=== PATIENT | female | born 1995 | race Caucasian/White ===

== ENCOUNTER 2018-09-16 10:40 | Day surgery (SDC) | payer OTHER, SELFPAY ==
--- NOTE | 2018-08-25 01:42 | HP_ITS ---
Intake Vital Signs 08/25/18 Height 5 ft 11 in 08/25/18 Weight: 230 lb 08/25/18 Body Mass Index (BMI) 32.1 08/25/18 Blood Pressure 122/76 H 08/25/18 Blood Pressure Location Rt brachial Intake Visit Reasons: Lipoma R Shoulder Blade Retention Specialist Required: No Is patient in pain?: No Allergies No Known Allergies Allergy (Unverified 08/25/18 12:55) Medications NK 08/25/18 [History Confirmed 08/25/18] PFSH Family History Grandmother Cancer pancreatic Social History Smoking Status: Never smoker alcohol intake: never HPI HPI HPI: LING NEGRON, is a 23 F who presents to the office today for HPI HPI Surgical H&P: Yes HPI: LING NEGRON, is a 23 F who presents to the office today for evaluation of a subcutaneous lesion to her right upper back area. She is noticed a small lump there for almost 2 years. She has not had any pain with this she states that it is now 4 times its original size. She has been told that it was a lipoma in the past. Nevertheless she cannot feel it nor does she noticed it when she is sleeping ROS General General: Yes weight change; no appetite, fatigue, colon cancer, breast cancer or weakness HEENT HEENT: No difficulty swallowing, eye injury, eye surgery, swollen glands or hoarseness Endo Endocrine: No thyroid disease, diabetes mellitus, thyroid cancer, Hair loss, heat intolerance or cold intolerance Skin Skin: No rash or changing moles Breast Breast: No left breast lump, right breast lump, nipple discharge, breast pain, abnormal mammogram, abnormal US or breast enlargement Musc Musculoskeletal: No back problems, arthritis, rheumatoid arthritis, gout or joint pain Cardio Cardiovascular: No murmur, pacemaker, heart disease, atrial fibrillation, high blood pressure, heart attack, heart stent, palpitations, shortness of breat with exertion or chest pain Psych Psychiatric: No depression, anxiety or hearing voices Resp Respiratory: No shortness of breath, No sleep apnea, No cough, No COPD, No asthma, No emphysema, No wheezing Gastro Gastrointestinal: No abdominal pain, No nausea or vomiting, No diarrhea, No constipation, No blood in stool, No acid reflux, No hemorrhoids, No ulcers, No gallbladder problem, No black,tarry stools Lázaro Hematologic: No blood thinners, No blood disorders, No bleeding, No anemia, No blood clots Neuro Neurologic: No system reviewed and no additional complaints, except as docu, No as per HPI, No abnormal walking, No abnormal hearing, No abnormal movements, No abnormal speech, No behavioral changes, No burning sensations, No confusion, No seizure-like activity, No unsteadiness, No dizziness, No localized weakness, No frequent falls, No headache(s), No lack of coordination, No loss of vision, No memory loss, No numbness, No other visual disturbances, No radiating pain, No restless legs, No sensory deficit, No fainting, No tingling, No tremor(s), No weakness, No other Exam Const General: no acute distress, well developed, well hydrated Orientation: oriented to person, oriented to place, oriented to time [facility] Head: normocephalic, atraumatic Ears: external ears normal Mouth: moist mucous membranes Eyes Sclera: sclerae normal Pupils: normal by confrontation Neck Neck: no lymphadenopathy noted Neck mass: No Thyroid: thyroid normal, symmetrical Chest Chest palpation & inspection: normal inspection of the chest Breast Palpation: No nipple discharge Resp Effort & Inspection: normal respiratory effort Auscultation: clear to auscultation bilaterally Percussion: percussion normal Cardio Rate: regular rate Rhythm: regular rhythm Heart Sounds: no murmurs GI Palpation: soft, no hepatosplenomegaly, no masses, nontender Rectal Exam: other Other: Rectal exam deferred. Musc Other: Right upper back just on top of the scapula and trapezius area is a large 15 cm subcutaneous lesion. It is freely movable it is soft and compressible it is not suspicious for malignancy. The overlying skin looks normal there is no signs of infection cellulitis or rash. There is no tenderness to palpation. Extrem General: normal to inspection, no clubbing, cyanosis or edema Assessment & Plan Problems 1. Lesion of subcutaneous tissue L98.9 Plan My plan is to excise this subcutaneous lesion of her upper back in the OR under local MAC.We reviewed the pre-operative plans with the patient. Risks and benefits of the procedure were fully explained, including but not limited to infection, neurovascular injury, continued pain, arthritis, stiffness, need for further surgery, re-injury, DVT, PE, general risks of anesthesia, and loss of the limb or life. The patient understands all the risks and does wish to proceed with written consent. Given the fact that this is now 4 times its original size it makes no sense and not removing this for fear that it could grow larger and possibly change. I have also told her that there is a slight chance that it could be malignant. Coding Level of Care Code Off vis,new,level 3 Diagnoses Lesion of subcutaneous tissue L98.9 08/25/18 1346 <Electronically signed by Misha sheffield MD> Date _ Misha Dodge MD I have re-examined the patient. There are no clinical changes since date of exam.
[2018-08-25 12:54] VITALS: BMI 32.1
--- NOTE | 2018-09-16 | LIP_PTH ---
PATIENT: LING NEGRON [place] [facility] [id number] AGE/SX: 23/F ROOM: RE09/16/[address]: Dr. Misha Dodge MD : [id number] BED: DIS: 09/16/2018 SPEC #: [id number] RECD: 09/16/18 16:37 STATUS: FRANCES KAYE #: [id number] SOFIA: 09/16/18 00:[address]: Misha Dodge DEPT: SURGICAL PATHOLOGY RECD BY: Anand Stone ENTERED: 09/17/18 13:58 SP TYPE: LIPOMA OTHR DR: Dr. Angela Szymanski MD Tissues: Soft tissues, NOS Procedures: Surgery Specimen Level III HEADER OPERATION: Excision lipoma right scapula PRE-OP DIAGNOSIS: Lesion subcutaneous tissue right scapula TISSUE SUBMITTED: Lipoma right scapula MICROSCOPIC DIAGNOSIS Soft tissue mass of right scapula, excision: Mature adipose tissue consistent with lipoma. AM:lexa 09/19/18 MICROSCOPIC DESCRIPTION Slides are reviewed. GROSS DESCRIPTION Received in fixative is one container labeled with the patient's name and designated lipoma right scapula. The specimen consists of an irregular piece of adipose tissue measuring 11 x 8 x 4 cm. The external surface is inked. Sections reveal yellow adipose cut surfaces without areas of hemorrhage, necrosis or cystic degeneration. Building Maintenance Technician sections are submitted in four cassettes. / SJ:lexa 09/17/18 TC:1 CPT: 11927
[2018-09-16 10:59] VITALS: BP 118/90; PULSE 80; RESP 16; TEMP 37; O2SAT 100; BMI 37.2
[2018-09-16 11:00] LABS: Internal QC Validated? YES +Cl - CLEAR BKGD
[2018-09-16 11:07] LABS: Pregnancy, Urine Negative Negative
[2018-09-16] MEDS: Cefazolin 2 GM in 0.9% Normal Saline 100 ML IV (13:27)
--- NOTE | 2018-09-16 13:30 | PCM.OPRPT ---
Problem List (1) Lesion of subcutaneous tissue Status: Acute Report of Operation Date of Procedure: 09/16/18 Pre-Operative Diagnosis: 12 cm subcutaneous lesion to right back Post-Operative Diagnosis: Same Surgery/Procedure Performed:: Excision of a 12 cm right lesion the back Type of Anesthesia:: General Estimated Blood Loss (mL): < 25 cc Description of Procedure: Patient was brought to the operating room placed in the supine position under excellent general anesthetic patient was placed in the left side with her arm extended exposing her back area near the right scapula. Everything was properly padded and she was secured to the bed. The right scapular area was sterilely prepped and draped in usual fashion. Local was injected. 15 cm incision was made electrocautery was used for good hemostasis dissected down through the subcutaneous tissue and encountered a large fatty lesion. I was able to remove this in its entirety and went all the way down to the fascia of the scapular musculature. It did not invade this muscle. It easily came out. I had good hemostasis. I brought the subcu together with interrupted sutures of 2-0 Vicryl. Deep dermal stitches of 3-0 Vicryl. Then a running 4-0 Monocryl. Steri-Strips were applied sterile dressings were applied and the patient tolerated the procedure well. She was extubated and transferred to the recovery room in good condition. - Admit VTE Documentation VTE Present on Admission: No VTE Mechan Device Prophylaxis: SCD's VTE Pharm Prophylaxis ordered?: No Reason prophylaxis not ordered:: Treatment Not Indicated
--- NOTE | 2018-09-16 13:32 | DCINST_ITS ---
Discharge Diet: Light diet - advance as tolerated - If you have questions about your diet instructions, please talk to your doctor. Discharge Activity: May Not Drive - for 1 week or while taking narcotic pain medicine. May shower in (days): 1 Lifting Restrictions: 10 pounds Call your doctor if your incision/area has: Continuous Slow Oozing, Sudden Increased Bleeding, Increased Pain/ Swelling, Increased Redness, Foul Smelling Discharge Call your doctor if you observe: Fever of 101 or Higher Suture Line Care: Avoid Pulling/Pushing, Avoid Pinching/Bending Additional Dressing/Incision Instructions:: Change or remove dressing in 4 days. Leave steri-strips in place for 1 week. Allergies/Adverse Reactions: Allergies No Known Allergies Allergy (Unverified 09/16/18 10:57) Medications to take at Discharge Oxycodone HCl/Acetaminophen [Percocet 5/325] 1 - 2 tab PO Q4H PRN PRN 6 Days #30 tab 09/16/18 The following prescriptions were given: Oxycodone HCl/Acetaminophen [Percocet 5/325] 1 - 2 tab PO Q4H PRN PRN 6 Days #30 tab PRN Reason: Pain Prescription Printed Primary Care Physician: Angela Szymanski MD [Primary Care Provider] - Test Results: Test results from this visit will be discussed in further detail at your follow- up appointment, if applicable. Please Follow Up With: Misha Dodge MD - [phone] When: Call to make an appointment to be seen in about 10 days.
[2018-09-16] MEDS: Bupivacaine Mpf 0.5% 30 ML VIAL (13:44)
[2018-09-16 14:18] VITALS: BP 102/73; BP 118/90; PULSE 70; RESP 18; TEMP 36.6; O2SAT 98
[2018-09-16 14:30] VITALS: BP 108/63; BP 118/90; PULSE 62; RESP 18; O2SAT 99
[2018-09-16 14:45] VITALS: BP 110/65; BP 118/90; PULSE 66; RESP 18; TEMP 36.7; O2SAT 100
[2018-09-16 15:29] VITALS: BP 118/90
== END 2018-09-16 15:32 | disposition home or self-care (01) ==
LOC: SDC 10:43 → AC 10:44
PROVIDERS: Anesthesiology; Family Provider Family Medicine; PCP Family Medicine; Referring Provider Surgery; Visit Provider Surgery
PROC: (CPT 23071; principal; 2018-09-16 12:30)
DX: D17.1 Benign lipomatous neoplasm of skin and subcutaneous tissue of trunk (principal)
CPT/HCPCS: 23071; 81025; 88304; J7120; J2405

== ENCOUNTER → 2018-10-27 15:29 | Outpatient (CLI) | payer OTHER, SELFPAY ==
[2018-10-27 15:01] VITALS: BMI 37.2
[2018-10-27 17:16] LABS: Estradiol 52.6 pg/mL; Follicle Stimulating Hormone 5.8 mIU/mL; Prolactin 6.5 ng/mL; Thyroid Stim Hormone (TSH) 0.94 uIU/mL (0.358-3.74)
[2018-10-27 17:21] LABS: HIV - WCH Non-Reactive (Nonreactive)
[2018-10-27 20:34] LABS: Chlamydia Trachomatis by PCR Negative (Negative); Neisserai gonorrhoeae by PCR Negative (Negative); Probe Check PASS; Sample Adequacy Control PASS; Specimen Processing Control PASS
[2018-10-30 12:07] LABS: DHEA Sulfate 246.2 ug/dL (110.0-431.7)
[2018-10-31 01:38] LABS: Rapid Plasmin Reagin (RPR) NONREACTIVE (NONREACTIVE)
[2018-10-31 12:23] LABS: 17-Hydroxyprogesterone 55 ng/dL (.); Testosterone Free 1.3 pg/mL (0.0-4.2)
[2018-11-03 12:19] LABS: HPV Reflexed? NOT INDICATED
== END ==
PROVIDERS: Family Provider Family Medicine; PCP Family Medicine; Referring Provider Nurse Practitioner Women's Health; Visit Provider Nurse Practitioner Women's Health
DX: Z12.4 Encounter for screening for malignant neoplasm of cervix (principal); N92.6 Irregular menstruation, unspecified; Z11.3 Encounter for screening for infections with a predominantly sexual mode of transmission
CPT/HCPCS: 36415; 82627; 82670; 83001; 83498; 84146; 84402; 84443; 86592; 86703; 87491; 87591; 87624; 88175; 82626; G0145

== ENCOUNTER → 2019-05-27 14:52 | Outpatient (CLI) | payer OTHER, SELFPAY ==
[2018-10-27 15:01] VITALS: BMI 37.2
--- NOTE | 2019-05-27 14:59 | BI_ITS ---
MAMMOGRAPHY - BILATERAL SCREENING REASON FOR EXAM: Female, 24 years old. Routine annual screening examination. PERTINENT HISTORY: Sister with breast cancer. TECHNIQUE: Digital bilateral breast cherelle (3D mammographic acquisition) in the CC and MLO projections. 2-D mediolateral oblique (MLO) and craniocaudad (CC) views of both breasts were obtained. CAD: Full Field Digital Mammography with Computer Added Detection was performed. COMPARISON: None. Baseline examination. FINDINGS: Breast Composition: The breasts are heterogeneously dense, which may obscure small masses. There are no dominant masses or suspicious calcifications. No other significant abnormalities are identified. BI/SCREEN MAMM (CAD) W/CHERELLE BILAT IMPRESSION: Negative screening mammogram. Yearly followup mammogram recommended. (A) ASSESSMENT CATEGORY: BIRADS Category 1: Negative. A letter regarding these results will be sent to the patient by the facility within 30 days. Approximately 10% of breast cancers are not detected by mammography. A normal mammogram should not delay biopsy of a clinically suspicious abnormality. [id number] Electronically Signed: Tal Moody, at 8:17 EDT , Service support ,
== END ==
PROVIDERS: PCP Family Medicine; Referring Provider Nurse Practitioner Women's Health; Visit Provider Nurse Practitioner Women's Health
DX: Z12.31 Encounter for screening mammogram for malignant neoplasm of breast (principal); Z80.3 Family history of malignant neoplasm of breast
CPT/HCPCS: 77063; 77067

== ENCOUNTER → 2020-07-04 12:37 | Outpatient (CLI) | payer OTHER, SELFPAY ==
[2020-07-04 08:09] VITALS: BMI 40.6
[2020-07-06 12:57] LABS: HPV Reflexed? NOT INDICATED
== END ==
PROVIDERS: PCP Family Medicine; Referring Provider Obstetrics & Gynecology; Visit Provider Obstetrics & Gynecology
DX: Z12.4 Encounter for screening for malignant neoplasm of cervix (principal)
CPT/HCPCS: 88175; G0145

== ENCOUNTER → 2020-08-01 09:02 | Outpatient (CLI) | payer OTHER, SELFPAY ==
[2020-08-01 08:57] VITALS: BMI 40.6
[2020-08-01 10:21] LABS: Cholesterol 186 mg/dL (200); Glucose 95 mg/dL (74-106); High Density Lipoprotein 59 mg/dL; Triglycerides 85 mg/dL; Very Low Density Lipoprotein 17 mg/dL (5-40); Vitamin D,25 Hydroxy 49.7 ng/mL
== END ==
PROVIDERS: PCP Family Medicine; Referring Provider Obstetrics & Gynecology; Visit Provider Obstetrics & Gynecology
DX: Z13.21 Encounter for screening for nutritional disorder (principal); Z13.220 Encounter for screening for lipoid disorders; E28.2 Polycystic ovarian syndrome
CPT/HCPCS: 36415; 80061; 82306; 82947

== ENCOUNTER → 2021-12-07 | Outpatient (CLI) | payer OTHER, SELFPAY ==
[2021-12-07 18:04] LABS: hCG Titer Quant., Serum < 1 mIU/mL (1-3)
[2021-12-07 18:10] LABS: Estradiol 52.8 pg/mL; Thyroid Stim Hormone (TSH) 1.25 uIU/mL (0.358-3.74)
[2021-12-12 16:08] LABS: Testosterone Free 2.1 pg/mL (0.0-4.2)
[2021-12-13 13:49] LABS: 17-Hydroxyprogesterone 45 ng/dL (.)
== END | disposition home or self-care (01) ==
PROVIDERS: PCP Family Medicine; Visit Provider Obstetrics & Gynecology
DX: E28.2 Polycystic ovarian syndrome (principal); Z83.2 Family history of diseases of the blood and blood-forming organs and certain disorders involving the immune mechanism
CPT/HCPCS: 36415; 81241; 82627; 82670; 83001; 83498; 84146; 84402; 84443; 84702; 82626

== ENCOUNTER → 2022-12-14 | Outpatient (CLI) | payer SELFPAY ==
[2022-12-21 16:54] LABS: HPV Reflexed? NOT INDICATED
== END | disposition home or self-care (01) ==
PROVIDERS: PCP Family Medicine; Visit Provider Registered Nurse
DX: R87.612 Low grade squamous intraepithelial lesion on cytologic smear of cervix (LGSIL) (principal)
CPT/HCPCS: 88175; G0145

== ENCOUNTER → 2023-02-06 | Outpatient (CLI) | payer OTHER, SELFPAY ==
[2023-02-06 12:21] LABS: Absolute Lymphocyte Count 1.71 X10^3/uL (0.83-4.51); Basophil# 0.05 X10^3/uL; Basophil% 0.8 % (0-1); Eosinophil# 0.07 X10^3/uL; Eosinophils% 1.1 % (0-5); Hematocrit 41.6 % (37-47); Hemoglobin 13.4 g/dL (12.0-15.0); Lymphocyte # 1.71 X10^3/ul (0.83-4.51); Lymphocyte % 27.1 % (19-41); Mean Corp Hgb Conc 32.2 g/dL (32-36); Mean Corpuscular Hgb 26.3 pg (27.0-32.0); Mean Corpuscular Volume 81.7 fL (81-99); Mean Platelet Vol. 10.1 fl (6.2-12.0); Monocyte# 0.43 X10^3/uL; Monocyte% 6.8 % (0-10); NRBC Flagged by Analyzer 0 % (0-5); Neutrophil # 4.03 X10^3/uL (2.7-7.7); Neutrophil % 63.9 % (47-70); Platelet Count 318 K/mm3 (150-450); RBC Distribution Width CV 12.1 % (11.6-14.6); RBC Distribution Width SD 35.9 fl (35.1-43.9); Red Blood Count 5.09 M/mm3 (4.2-5.4); White Blood Count 6.3 K/mm3 (4.4-11.0)
[2023-02-06 13:12] LABS: Hemoglobin A1c 4.7 % (3.8-5.6)
[2023-02-06 13:20] LABS: ALB/GLOB Ratio 0.8 RATIO (0.9-2.4); AST(SGOT) 13 U/L (15-37); Alanine Aminotransfer ALT/SGPT 20 U/L (13-56); Albumin, Serum 3.6 g/dL (3.2-5.0); Alkaline Phosphatase 71 U/L (45-117); Anion Gap 8 (5-15); BUN 15 mg/dL (7-18); BUN/Creat Ratio 16.4 RATIO (10-20); Calcium,Total 9.1 mg/dL (8.5-10.1); Chloride 107 mmol/L (98-107); Cholesterol 187 mg/dL (200); Creatinine, Serum 0.92 mg/dL (0.55-1.02); EST Glomerular Filtration Rate 78 mL/min (>60); Est Glom Filt Rate - Afr Amer 94 mL/min (>60); Globulin 4.5 g/dL (2.2-4.2); Glucose 74 mg/dL (74-106); High Density Lipoprotein 53 mg/dL; Protein, Total 8.1 g/dL (6.4-8.2); Sodium Level 139 mmol/L (136-145); Thyroid Stim Hormone (TSH) 1.69 uIU/mL (0.358-3.74); Triglycerides 128 mg/dL; Very Low Density Lipoprotein 26 mg/dL (5-40)
== END | disposition home or self-care (01) ==
PROVIDERS: PCP Family Medicine; Visit Provider Obstetrics & Gynecology
DX: E66.9 Obesity, unspecified (principal)
CPT/HCPCS: 36415; 80053; 80061; 82652; 83036; 84443; 85025

== ENCOUNTER → 2024-05-28 | Outpatient (CLI) | payer BC, SELFPAY ==
[2024-05-28 12:36] LABS: Absolute Lymphocyte Count 1.69 X10^3/uL (0.83-4.51); Absolute Neutrophil Count 3.8 X10^3/uL (2.0-7.7); Basophil# 0.06 X10^3/uL; Eosinophil# 0.09 X10^3/uL; Eosinophils% 1.5 % (0-5); Hemoglobin 14.4 g/dL (12.0-15.0); Lymphocyte # 1.69 X10^3/ul (0.83-4.51); Lymphocyte % 27.9 % (19-41); Mean Corp Hgb Conc 34.3 g/dL (32-36); Mean Corpuscular Hgb 28.1 pg (27.0-32.0); Monocyte# 0.36 X10^3/uL; Monocyte% 5.9 % (0-10); NRBC Flagged by Analyzer 0 % (0-5); Neutrophil # 3.84 X10^3/uL (2.7-7.7); Neutrophil % 63.4 % (47-70); Platelet Count 376 K/mm3 (150-450); RBC Distribution Width CV 12.5 % (11.6-14.6); RBC Distribution Width SD 37.3 fl (35.1-43.9); Red Blood Count 5.12 M/mm3 (4.2-5.4); White Blood Count 6.1 K/mm3 (4.4-11.0)
== END | disposition home or self-care (01) ==
LOC: BWCLAB 10:36
PROVIDERS: PCP Family Medicine; Referring Provider Advanced Practice Midwife; Visit Provider Advanced Practice Midwife
DX: Z13.29 Encounter for screening for other suspected endocrine disorder (principal); N92.0 Excessive and frequent menstruation with regular cycle; N93.9 Abnormal uterine and vaginal bleeding, unspecified
CPT/HCPCS: 36415; 84443; 85025

== ENCOUNTER → 2024-06-01 | Outpatient (CLI) | payer BC, SELFPAY ==
--- NOTE | 2024-06-01 12:22 | US_ITS ---
PROCEDURE: PELVIC W/ TRANSVAGINAL REASON FOR EXAM: ABNORMAL UTERINE BLEEDING TECHNIQUE: Transabdominal and transvaginal pelvic ultrasound COMPARISON: None. FINDINGS: LMP: May 15, 2024. Measurements: Uterus: 9.5 cm x 5.6 cm x 4.2 cm with a volume of 115 mL Endometrial Thickness: 14.4 mm Right Ovary: 3.8 cm x 2.3 cm x 2.7 cm with a volume of 12.14 mL. Left Ovary: 4.1 cm x 2.8 cm x 2.1 cm with a volume of 12.24 mL. TRANSABDOMINAL: Uterus: Normal size, myometrial echotexture, and contour. Endometrium: Homogeneously thickened. Right ovary: Multiple small follicles. Left ovary: Multiple small follicles. No large pelvic mass identified. Transvaginal sonography was performed to better visualize the endometrium. TRANSVAGINAL: Uterus: Anteverted. Normal contour and myometrial echotexture.. Nabothian cyst. Endometrium: Thickened endometrium. Right ovary: Multiple small follicles. Left ovary: Multiple small follicles. Other adnexal findings: None. Cul-de-sac: No free intraperitoneal fluid identified. No tenderness. US/Pelvic w/ Transvaginal IMPRESSION: Multiple small follicles in both ovaries as described. Polycystic ovary syndro me should be ruled out. Thickened endometrium. Reading Location: [place] [id number]
== END | disposition home or self-care (01) ==
PROVIDERS: Referring Provider Advanced Practice Midwife; Visit Provider Advanced Practice Midwife
DX: N93.9 Abnormal uterine and vaginal bleeding, unspecified (principal); N92.0 Excessive and frequent menstruation with regular cycle
CPT/HCPCS: 76830; 76856

== ENCOUNTER 2024-07-20 01:59 | Emergency (ER) | payer BC, SELFPAY ==
[2024-07-20 02:00] VITALS: BP 141/79; PULSE 76; RESP 22; TEMP 36.6; O2SAT 100; BMI 38.3
--- NOTE | 2024-07-20 02:12 | ED.VIS.FEGU ---
HPI HPI - Female History of Present Illness Chief Complaint: Female C/O Informant: patient Narrative Narrative: Presents with lower worsening nontraumatic low back pain pelvic pain since started her menstrual period yesterday. This is not typical for the similar pain. Take 3 Aleve's prior to bed. No urinary symptoms. No fever chills or sweats. No abdominal surgeries. History of PCOS. Patient presenting the ED had 1 large emesis while in the emergency department. There is no hematemesis. No allergies. Prior similar symptoms: No PFSH PFSH Medical History Family history of factor V deficiency Home Medications ?Medication ?Instructions ?Recorded ?Last Taken ?Type semaglutide (weight loss) 2.4 2.4 mg subcut QWEEK 05/28/24 Unknown History mg/0.75 mL subcutaneous pen injector Allergy/AdvReac Type Severity Reaction Status Date / Time No Known Allergies Allergy Verified 07/20/24 02:03 Family History Grandmother Cancer pancreatic Sister Breast cancer, Onset Age: 32 stage 3, neg for BRCA gene Surgical History H/O local excision of skin lesion Social History Smoking Status: Never smoker alcohol intake: never substance use type: does not use caffeine: Yes what type of physical activity do you participate in: other details: basketball, farming frequency: 3-4 times per week seatbelt use: sometimes do you feel safe at home: Yes additional social history: Single-Works at [employer] ROS ED Constitutional Constitutional ED: Denies chills, fever(s) or sweats ENT ENT ED: Denies sore throat Cardiovascular Cardiovascular: Denies chest pain, leg edema, palpitations or racing heartbeat Respiratory/Chest Respiratory/Chest: Denies cough, dyspnea or dyspnea on exertion Gastrointestinal Gastrointestinal: Reports abdominal pain, nausea and vomiting; Denies diarrhea Genitourinary Genitourinary ED: Denies dysuria, hematuria or urinary frequency Musculoskeletal Musculoskeletal: Reports back pain; Denies extremity pain or neck pain Integumentary Denies rash or wounds Neurologic Neurologic: Denies headache(s), paresthesias or weakness EXAM Physical Exam Const Vital Signs: 07/20/24 02:00 07/20/24 04:36 Temperature 97.9 F 98.2 F Temperature Source Oral Pulse Rate 76 68 Respiratory Rate 22 H 14 Blood Pressure 141/79 H 122/75 H Blood Pressure Mean 99 90 Pulse Ox 100 99 Oxygen Delivery Method Room Air Positive well nourished and well developed Constitutional Narrative: Patient with emesis on her clothing, nontoxic. General Appearance ED: well developed HEENT Reports moist mucous membranes normocephalic and atraumatic Eyes General Eye ED: Yes normal appearance of both eyes Neck full ROM Chest Wall Chest: Negative for tenderness Resp normal respiratory effort and normal air movement Effort and Inspection: symmetric chest movement; Negative for respiratory distress Cardio regular rate, regular rhythm and no murmurs Peripheral Pulses: pulses 2+ throughout GI normal to inspection, nondistended, normoactive bowel sounds GI Narrative: Mild tenderness lower abdomen without guarding or rebound. Palpation: Negative for guarding or rebound tenderness present Back/Spine Negative for no CVA tenderness Back/Spine Narrative: Tender to palpation lower lumbar with no step-offs. Extremity normal to inspection General Extremety ED: Negative for edema or tenderness General Extremity: Negative for edema Neuro oriented x3 and no sensory deficits noted Sensorium / Orientation: awake and alert Skin no rashes or lesions noted and no wounds MDM MDM MDM Narrative Medical decision making narrative: Interventions / MDM: Differential diagnosis: Menorrhagia, vaginal bleeding Diagnosis considered but do not suspect: Ectopic however hCG negative. My EKG interpretation: N/A Imaging independently reviewed and interpreted by myself: External documents reviewed: N/A Test considered but not ordered:CT abdomen pelvis with IV contrast however symptoms resolved and remained pain-free. ED course: Increasing low back pain lower abdominal pain started her menstrual period. Vomiting in the ED. IV established check basic labs urine hCG. Fluids given. Morphine Zofran. CT abdomen pelvis IV contrast for further evaluation. 0225: Patient went to restroom for a urine sample apparently passed a large clot in the toilet states symptoms completely resolved with her back pain and pelvic pain. She declined pain medications, discussed we will hold on CT imaging at this time as symptoms resolved. She agrees. Laboratory studies will be checked along with urine. 0330: Labs stable hemoglobin 13.1. hCG negative. Urine with nitrites 100 leukocytes 5-10 WBCs. She had RBCs however is on her menstrual period. We discussed with patient denies dysuria or frequency. Therefore urine culture sent. Will not treat unless positive. Continue to be pain-free on reevaluation. Discussed menorrhagia. She then states she was using Advil not Aleve. Discussed that appropriate use up to 600 mg of Advil every 6 hours to help with pain. 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 Re-evaluation: stable Disposition discussed with patient/family/significant other: Patient Case discussed with consulting clinician: N/A This note was generated with [email or web address] dictation software. It may contain incorrect words, spelling, and punctuation that were not noted in checking the note before signing. Lab Data Attestation: I reviewed the patient's lab results. Labs: Laboratory Results - last 24 hr 07/20/24 07/20/24 02:28 03:34 WBC 11.3 H RBC 4.63 Hgb 13.1 Hct 37.1 MCV 80.1 L MCH 28.3 MCHC 35.3 RDW Std Deviation 35.5 RDW Coeff of Fe 12.3 Plt Count 298 MPV 9.8 Immature Gran % (Auto) 0.400 Neut % (Auto) 73.4 H Lymph % (Auto) 17.3 L [place] % (Auto) 7.0 Eos % (Auto) 1.5 Baso % (Auto) 0.4 Absolute Neuts (auto) 8.3 H Absolute Lymphs (auto) 1.96 Nucleated RBC % 0 Sodium 136 Potassium 3.8 Chloride 104 Carbon Dioxide 20.5 L Anion Gap 12 BUN 14 Creatinine 0.88 Estim Creat Clear Calc 137.59 Est GFR (MDRD) Non-Af 91 BUN/Creatinine Ratio 15.3 Glucose 104 H Calcium 9.5 Serum , Qual NEGATIVE Urine Color Red Urine Clarity Cloudy Urine pH 6.0 Ur Specific [place] 1.020 Urine Protein 100 H Urine Glucose (UA) Normal Urine Ketones Negative Urine Occult Blood 250 H Urine Nitrite Positive H Urine Bilirubin Negative Urine Urobilinogen Normal Ur Leukocyte Esterase 100 H Urine RBC 50-100 SEEN Urine WBC 5-10 SEEN Ur Squamous Epith Cells 0 SEEN Urine Bacteria 1+ Urine Mucus 0 SEEN Discharge Plan Triage Chief Complaint: Female C/O ED Provider: Tad Burch Dx/Rx/DC Orders Clinical Impression: Menorrhagia, Vaginal bleeding Instructions: Understanding Uterine Bleeding, ED MENSTRUAL CRAMPING Prescriptions: No Action semaglutide (weight loss) 2.4 mg/0.75 mL pen injector 2.4 mg subcut QWEEK Stand Alone Forms: ED Work / School Excuse Primary Care Provider: Care Physician,No Primary Referrals: Angy Russo MD [Med Staff - Active Staff] - 3-5 Days if not improving Care Physician,No Primary [Primary Care Provider] - Activity Restrictions/Additional Instructions: Hemoglobin 13.1. Continue your Advil up to 600 mg every 6 hours for cramping pain. Follow-up with your doctor. Urine culture sent if positive you will be contacted for treatment. Print Language: Greenlandic Disposition Disposition: Home, Self Care Discharge Date/Time: 07/20/24 04:37
[2024-07-20] MEDS: 0.9% Normal Saline (1000mL) 1,000 ML 999 ML IV (02:29)
[2024-07-20 02:42] LABS: Absolute Lymphocyte Count 1.96 X10^3/uL (0.83-4.51); Absolute Neutrophil Count 8.3 X10^3/uL (2.0-7.7); Basophil# 0.05 X10^3/uL; Basophil% 0.4 % (0-1); Eosinophil# 0.17 X10^3/uL; Eosinophils% 1.5 % (0-5); Hematocrit 37.1 % (37-47); Hemoglobin 13.1 g/dL (12.0-15.0); Lymphocyte # 1.96 X10^3/ul (0.83-4.51); Lymphocyte % 17.3 % (19-41); Mean Corp Hgb Conc 35.3 g/dL (32-36); Mean Corpuscular Hgb 28.3 pg (27.0-32.0); Mean Corpuscular Volume 80.1 fL (81-99); Mean Platelet Vol. 9.8 fl (6.2-12.0); Monocyte# 0.79 X10^3/uL; NRBC Flagged by Analyzer 0 % (0-5); Neutrophil # 8.28 X10^3/uL (2.7-7.7); Neutrophil % 73.4 % (47-70); Platelet Count 298 K/mm3 (150-450); RBC Distribution Width CV 12.3 % (11.6-14.6); RBC Distribution Width SD 35.5 fl (35.1-43.9); Red Blood Count 4.63 M/mm3 (4.2-5.4); White Blood Count 11.3 K/mm3 (4.4-11.0)
[2024-07-20 03:03] LABS: Internal QC Validated? YES +Cl - CLEAR BKGD
[2024-07-20 03:04] LABS: Pregnancy, Serum, hCG Quali. NEGATIVE Negative
[2024-07-20 03:41] LABS: Mucous, Urine 0 SEEN /hpf (<or=2+); Squamous Epithelial Cells - UA 0 SEEN /hpf (5-10)
[2024-07-20 03:47] LABS: Color, Urine Red (Yellow); Glucose, Dipstick Normal (Normal); Ketone-Dipstick Negative (Negative); Leukocyte Esterase-Dipstick 100 /ul (Negative); Nitrite-Dipstick Positive (Negative); Occult Blood-Urine 250 /ul (Negative); Protein-Dipstick 100 mg/dl (Negative); Urine Bilirubin Dipstick Negative (Negative); Urine Clarity Cloudy (Clear); Urine Urobilinogen Normal (Normal)
[2024-07-20 03:49] LABS: Anion Gap 12 (5-15); BUN 14 mg/dL (4-19); BUN/Creat Ratio 15.3 RATIO (10-20); Calcium,Total 9.5 mg/dL (7.6-11.0); Carbon Dioxide 20.5 mmol/L (21.0-32.0); Chloride 104 mmol/L (98-108); Creatinine, Serum 0.88 mg/dL (0.70-1.20); EST Glomerular Filtration Rate 91 (>60); Estimated Creatinine Clearance 137.59 ml/min (50-250); Glucose 104 mg/dL (70-99); Potassium 3.8 mmol/L (3.3-5.1); Sodium Level 136 mmol/L (133-145)
[2024-07-20 04:31] LABS: Red Blood Cells-Urine 50-100 SEEN /hpf (0-5); White Blood Cells 5-10 SEEN /hpf (0-5)
[2024-07-20 04:32] LABS: Bacteria 1+ /hpf (None Seen)
[2024-07-20 04:36] VITALS: BP 122/75; PULSE 68; RESP 14; TEMP 36.8; O2SAT 99
== END 2024-07-20 04:37 | disposition home or self-care (01) ==
PROVIDERS: Emergency Provider Emergency Medicine; Visit Provider Emergency Medicine
DX: N92.0 Excessive and frequent menstruation with regular cycle (principal); N93.9 Abnormal uterine and vaginal bleeding, unspecified
CPT/HCPCS: 80048; 81001; 84703; 85025; 87086; 87088; 96360; 96361; 99283; A4216; J2405